=== PATIENT | male | born 1930 | race Caucasian/White ===

== ENCOUNTER → 2017-01-31 | Outpatient (REF) | payer MEDICARE, OTHER ==
[2017-02-04 00:06] LABS: BABESIOSIS LEVEL IGG <1:10 (Neg:<1:10); BABESIOSIS LEVEL IGM <1:10 (Neg:<1:10); Lyme Disease IgG/IgM Antibodie <0.91 ISR (0.00-0.90); Lyme Disease IgM Ab Quantitati <0.80 index (0.00-0.79)
== END ==
LOC: M LAB REF 16:37
PROVIDERS: ATTEND Physician Assistant
DX: S50.11XA Contusion of right forearm, initial encounter (principal); X58.XXXA Exposure to other specified factors, initial encounter; Y92.89 Other specified places as the place of occurrence of the external cause

== ENCOUNTER → 2017-03-04 | Outpatient (CLI) | payer MEDICARE, OTHER ==
[~2017-03-04] MED LIST: ADVI200T26 PO; GASTROGRAFIN SOLUTION 30ML (Q9963) As Ordered ONE; ISOVUE-370 76% 100ML VIAL (Q9967) As Ordered ONE; LISI10TA4 PO; PRAV10TA PO
--- NOTE | 2017-03-04 14:53 | REP ---
Clinical: Generalized abdominal pain. Technique: Axial contrast enhanced images from the lung bases to the pubic symphysis using oral and 100 ml Isovue 370 intravenous contrast material with precontrast images of the abdomen as well as coronal and sagittal re-formations. Comparison: 09/10/2005. Findings: Lung bases are clear. Visualized heart and pericardium normal. Liver, pancreas, gallbladder, bilateral adrenal glands and kidneys are normal. Splenic calcifications are consistent with prior granulomatous disease. The kidneys demonstrate mild symmetric chronic perinephric stranding. The enteric system demonstrates fecal stasis and diverticulosis without acute obstruction or inflammatory process. Normal terminal ileum and appendix identified in the right lower quadrant. Pelvis demonstrates normal bladder with mildly enlarged prostate gland measuring 5 cm transverse diameter. No ascites. No adenopathy. No free air. 3 cm fat containing periumbilical hernia noted. The atherosclerotic changes of the aorta and vasculature without aneurysm. Musculoskeletal structures demonstrate age-related degenerative change without focal osseous abnormality. Impression: 1. No acute intra-abdominal or pelvic pathology appreciated. 2. Diverticulosis without acute diverticulitis. 3. 3 cm fat containing periumbilical hernia. 4. Moderately enlarged prostate gland. Signed by Daniel Fuentes MD 03/04/2017 02:43 P
== END ==
LOC: M RAD 12:09
PROVIDERS: ATTEND Surgery
DX: K57.30 Diverticulosis of large intestine without perforation or abscess without bleeding (principal); N40.0 Benign prostatic hyperplasia without lower urinary tract symptoms; K42.9 Umbilical hernia without obstruction or gangrene
CPT/HCPCS: 74178; Q9963; Q9967

== ENCOUNTER → 2017-03-10 | Outpatient (CLI) | payer MEDICARE, OTHER ==
[~2017-03-10] VITALS: Ht 180.3 cm; Wt 93.0 kg
[~2017-03-10] MED LIST changes: -GASTROGRAFIN SOLUTION 30ML (Q9963) As Ordered ONE; -ISOVUE-370 76% 100ML VIAL (Q9967) As Ordered ONE; +LIDOCAINE 2% INJ 100 MG/5 ML SDV (FOR ANES.) As Ordered ONE; +NS 1,000 ML IV ONE; +PROPOFOL 200 MG/20 ML VIAL As Ordered ONE; +ePHEDrine SULFATE 25 MG/5 ML(5MG/ML) SYRINGE As Ordered ONE
--- NOTE | 2017-03-10 09:21 | ROOR ---
Patient Name: Dhruv Qiu Procedure Date: 03/10/2017 9:01 AM Date of : 1930 Age: 86 Room: [facility] Gender: Male Note Status: Finalized Procedure: Colonoscopy Indications: Constipation Providers: Lane Beckham Jr, MD Referring MD: Frederick Hurtado MD Requesting Provider: Medicines: Propofol per Anesthesia Complications: No immediate complications. Procedure: Pre-Anesthesia Assessment: - Prior to the procedure, a History and Physical was performed, and patient medications and allergies were reviewed. The patient is competent. The risks and benefits of the procedure and the sedation options and risks were discussed with the patient. All questions were answered and informed consent was obtained. Patient identification and proposed procedure were verified by the physician and the nurse in the pre-procedure area and in the procedure room. Mental Status Examination: alert and oriented. Airway Examination: normal oropharyngeal airway and neck mobility. Respiratory Examination: clear to auscultation. CV Examination: normal. ASA Grade Assessment: II - A patient with mild systemic disease. After reviewing the risks and benefits, the patient was deemed in satisfactory condition to undergo the procedure. The anesthesia plan was to use moderate sedation / analgesia (conscious sedation). Immediately prior to administration of medications, the patient was re-assessed for adequacy to receive sedatives. The heart rate, respiratory rate, oxygen saturations, blood pressure, adequacy of pulmonary ventilation, and response to care were monitored throughout the procedure. The physical status of the patient was re-assessed after the procedure. The Colonoscope was introduced through the anus and advanced to the cecum, identified by appendiceal orifice and ileocecal valve. The colonoscopy was performed without difficulty. The patient tolerated the procedure well. The quality of the bowel preparation was adequate and good. Findings: The recto-sigmoid colon, descending colon, transverse colon, ascending colon, cecum, appendiceal orifice and ileocecal valve appeared normal. Multiple small and large-mouthed diverticula were found in the sigmoid colon. External and internal hemorrhoids were found during retroflexion and during endoscopy. The hemorrhoids were moderate. Impression: - The recto-sigmoid colon, descending colon, transverse colon, ascending colon, cecum, appendiceal orifice and ileocecal valve are normal. - Diverticulosis in the sigmoid colon. - External and internal hemorrhoids. - No specimens collected. Recommendation: - Repeat colonoscopy in 5-[address] Beckham MD Lnae Beckham Jr, MD 03/10/2017 9:20:53 AM This report has been signed electronically. Number of Addenda: 0 Note Initiated On: 03/10/2017 9:01 AM Estimated Blood Loss: Estimated blood loss: none.
[2017-03-10 09:45] VITALS: BP 120/78
== END | disposition home or self-care (01) ==
LOC: M OPP 08:11
PROVIDERS: ATTEND Surgery
DX: K59.00 Constipation, unspecified (principal); Z86.010 Personal history of colon polyps; K57.30 Diverticulosis of large intestine without perforation or abscess without bleeding; K64.4 Residual hemorrhoidal skin tags; K64.8 Other hemorrhoids; I10 Essential (primary) hypertension; E11.9 Type 2 diabetes mellitus without complications; K21.9 Gastro-esophageal reflux disease without esophagitis; Z79.899 Other long term (current) drug therapy

== ENCOUNTER 2017-06-07 17:44 | Emergency (ER) | payer MEDICARE, OTHER ==
[~2017-06-07] VITALS: Ht 182.9 cm; Wt 90.9 kg
[~2017-06-07 17:44] MED LIST changes: -LIDOCAINE 2% INJ 100 MG/5 ML SDV (FOR ANES.) As Ordered ONE; -NS 1,000 ML IV ONE; -PRAV10TA PO; +PRAV10TA4 PO; -PROPOFOL 200 MG/20 ML VIAL As Ordered ONE; -ePHEDrine SULFATE 25 MG/5 ML(5MG/ML) SYRINGE As Ordered ONE
[2017-06-07] MEDS ORDERED: NS 1,000 ML IV ONE (19:15)
[2017-06-07] MEDS ORDERED: ONDANSETRON 4MG/2ML VIAL (J2405) IV ONE (19:15)
[2017-06-07] MEDS ORDERED: MORPHINE 2 MG/ML 1ML SYRINGE IV PRN (19:15)
[2017-06-07 20:01] LABS: ALBUMIN 4.1 GM/DL (3.2-5.2); ALBUMIN/GLOBULIN RATIO 0.89 (1.00-1.93); ALKALINE PHOSPHATASE 84 U/L (45-117); ALT/SGPT 14 U/L (12-78); ANION GAP 9 MEQ/L (8-16); AST/SGOT 9 U/L (15-37); BILIRUBIN,DIRECT 0.4 MG/DL (0.0-0.2); BILIRUBIN,TOTAL 1.7 MG/DL (0.2-1.0); BLOOD UREA NITROGEN 20 MG/DL (7-18); CALCIUM LEVEL 9.1 MG/DL (8.8-10.2); CARBON DIOXIDE LEVEL 27 MEQ/L (21-32); CHLORIDE LEVEL 98 MEQ/L (98-107); GLOMERULAR FILTRATION RATE > 60.0 (>35); GLUCOSE, FASTING 130 MG/DL (83-110); POTASSIUM SERUM 4.2 MEQ/L (3.5-5.1); SODIUM LEVEL 134 MEQ/L (136-145); TOTAL PROTEIN 8.7 GM/DL (6.4-8.2)
[2017-06-07 20:04] LABS: BASO % 0.4 % (0.0-1.0); EOS # 0.4 K/mm3 (0.0-0.50); EOS % 2.6 % (0.0-3.0); LARGE UNSTAINED CELL # 0.1 K/mm3 (0.0-0.4); LARGE UNSTAINED CELL % 0.7 % (0.0-4.0); LYMPH # 1.3 K/mm3 (1.5-4.5); LYMPH % 8.7 % (24.0-44.0); MEAN CORPUSCULAR HGB CONC 33.5 g/dl (32.0-36.5); MEAN CORPUSCULAR VOLUME 101.5 fl (80.0-96.0); MONO # 0.8 K/mm3 (0.0-0.8); NEUTROPHILS # 11.4 K/mm3 (1.8-7.7); NEUTROPHILS % 81.7 % (36.0-66.0); PLATELET COUNT, AUTOMATED 191 k/mm3 (150-450); RED CELL DISTRIBUTION WIDTH 12.9 % (11.5-14.5)
[2017-06-07] MEDS ORDERED: ISOVUE-370 76% 100ML VIAL (Q9967) As Ordered ONE (20:17)
--- NOTE | 2017-06-07 21:00 | REPUSA ---
CT of the abdomen and pelvis with contrast Clinical statement: Pain. Technique: Multiple axial CT images were obtained from the base of the lungs through the floor of the pelvis utilizing 5 mm axial slices after administration of nonionic intravenous contrast. Coronal an d sagittal reconstructions were also obtained. Comparison: 03/04/2017. Findings: Chest: The visualized lung bases are clear. Abdomen: The liver, spleen, pancreas, kidneys, gallbladder, and adrenal glands are unremarkable. The aorta is within normal limits. There is no evidence of abdominal lymphadenopathy or ascites. Pelvis: The bowel is unremarkable, with no obstructive or inflammatory changes. Diffuse sigmoid diver ticulosis is noted without evidence of diverticulitis. The appendix is normal. Moderate amount of sto ol fills the colon. The urinary bladder is within normal limits. The other pelvic structures appear g rossly intact. There is no evidence of pelvic lymphadenopathy or ascites. Bones: There are no suspicious osseous abnormalities seen. Multilevel degenerative disc disease is no leslie the lumbar spine, most severe at L4/L5 and L1/L2. 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 Impression: 1. Mild constipation. Sigmoid diverticulosis without evidence of diverticulitis. No obstructive or in flammatory bowel changes. 2. Moderate spondylosis of the lumbar spine.
[2017-06-07] MEDS ORDERED: MAALOX 30 ML SUSP *UDC PO ONE (21:30)
[2017-06-07] MEDS ORDERED: SIMETHICONE 80 MG CHEW TAB PO ONE (21:30)
[2017-06-07] MEDS ORDERED: ACETAMINOPHEN TAB 650MG DOSE (2X325MG) PO ONE (22:30)
[2017-06-07] MEDS ORDERED: SIME180C PO (23:12)
[2017-06-07] MEDS ORDERED: ZOFR4TAB3 PO (23:12)
[2017-06-07] MEDS ORDERED: MAGN1SOL2 PO (23:12)
[2017-06-07 23:45] VITALS: BP 119/70
== END 2017-06-07 23:45 | disposition home or self-care (01) ==
LOC: M ED 17:44
DX: E86.0 Dehydration (principal); K59.00 Constipation, unspecified
CPT/HCPCS: 74177; 80048; 80076; 81001; 83605; 83690; 85025; 86140; 96374; 96375; 99284; J2405; Q9967

== ENCOUNTER → 2017-06-13 | Outpatient (REF) | payer MEDICARE, OTHER ==
[~2017-06-13] MED LIST changes: +MAGN1SOL2 PO; +SIME180C PO; +ZOFR4TAB3 PO
[2017-06-13 20:11] LABS: MEAN CORPUSCULAR HEMOGLOBIN 33.1 pg (27.0-33.0); MEAN CORPUSCULAR HGB CONC 32.6 g/dl (32.0-36.5); MEAN CORPUSCULAR VOLUME 101.5 fl (80.0-96.0); PLATELET COUNT, AUTOMATED 289 k/mm3 (150-450); RED CELL DISTRIBUTION WIDTH 12.5 % (11.5-14.5); WHITE BLOOD COUNT 5.1 K/mm3 (4.0-10.0)
[2017-06-13 20:52] LABS: BASOPHILS 1 % (0-4); EOSINOPHILS 10 % (0-5)
== END ==
LOC: M LAB REF 16:36
PROVIDERS: ATTEND Family Medicine
DX: R71.8 Other abnormality of red blood cells (principal); D72.829 Elevated white blood cell count, unspecified; R79.82 Elevated C-reactive protein (CRP)

== ENCOUNTER → 2018-06-19 | Outpatient (CLI) | payer MEDICARE, OTHER | LOC: M WUC 09:52 | DX: M25.531 Pain in right wrist (principal) | CPT/HCPCS: 73110 ==

== ENCOUNTER 2019-05-29 15:02 | Emergency (ER) | payer MEDICARE, OTHER ==
[~2019-05-29] VITALS: Ht 180.3 cm; Wt 91.2 kg
[~2019-05-29 15:02] MED LIST changes: +ZOFR4TAB14 PO; -ZOFR4TAB3 PO
[2019-05-29] MEDS ORDERED: SYST1SOL4 OP (15:21)
[2019-05-29] MEDS ORDERED: ELIQ5TAB OR (15:21)
[2019-05-29] MEDS ORDERED: ALIG4CAP PO (15:21)
[2019-05-29] MEDS ORDERED: ADVI200T17 PO (15:21)
[2019-05-29] MEDS ORDERED: DILT30TA OR (15:21)
[2019-05-29] MEDS ORDERED: FLUTISP INH (15:21)
[2019-05-29] MEDS ORDERED: B-COTAB10 PO (15:21)
[2019-05-29 17:34] VITALS: BP 158/83
--- NOTE | 2019-05-29 19:18 | REP ---
REASON: Trauma. TECHNIQUE: 4.5 mm contiguous transaxial sections were obtained from the skull base to the cerebral convexities with thin cuts through the posterior fossa without the administration of intravenous contrast. FINDINGS: The ventricles and sulci are consistent with the patient's age. There are no extra-axial fluid collections. There is no mass effect. The deep cerebral white matter is consistent with the patient's age. The orbital and petrous structures, cerebellopontine angles, and posterior fossa are unremarkable. The sella turcica, cavernous, and paracavernous structures are essentially unremarkable. The visualized portions of the paranasal sinuses and mastoid air cells are clear. Images of the skull base show no gross abnormality. IMPRESSION: Essentially unremarkable CT examination of the brain. Age related changes are seen with cerebral and cerebellar atrophy. Electronically Signed by Maxwell Toscano DO 05/30/2019 09:33 A
--- NOTE | 2019-05-30 08:16 | REP ---
Pain after trauma. PRIORS: None. There is moderate to severe disc space narrowing at every level. Vertebral body height and alignment are within normal limits. Hypertrophic degenerative facet and uncovertebral joint changes are present at every level bilaterally. There is no acute fracture. There is no abnormal paraspinal soft tissue swelling. IMPRESSION: Chronic changes. Electronically Signed by Maxwell Toscano DO 05/30/2019 09:45 A
--- NOTE | 2019-05-30 08:35 | REP ---
REASON FOR EXAM: Pain after trauma. PRIORS: None. Four views were obtained with frontal view of the chest. The frontal view of the chest is normal. Four views of the left ribs showed no evidence of an acute fracture or destructive osseous lesion. Electronically Signed by Maxwell Toscano DO 05/30/2019 09:46 A
== END 2019-05-29 17:36 | disposition home or self-care (01) ==
LOC: M ED 15:02
DX: S20.212A Contusion of left front wall of thorax, initial encounter (principal); S51.002A Unspecified open wound of left elbow, initial encounter; S80.212A Abrasion, left knee, initial encounter; W10.8XXA Fall (on) (from) other stairs and steps, initial encounter; Y92.018 Other place in single-family (private) house as the place of occurrence of the external cause; I10 Essential (primary) hypertension; I48.91 Unspecified atrial fibrillation; N40.0 Benign prostatic hyperplasia without lower urinary tract symptoms; F95.9 Tic disorder, unspecified; Z79.899 Other long term (current) drug therapy; Z79.01 Long term (current) use of anticoagulants

== ENCOUNTER → 2019-06-20 | Outpatient (REF) | payer MEDICARE, OTHER ==
[~2019-06-20] MED LIST changes: +ADVI200T17 PO; +ALIG4CAP PO; +B-COTAB10 PO; +DILT30TA OR; +ELIQ5TAB OR; +FLUTISP INH; +SYST1SOL4 OP
== END ==
LOC: M LAB REF 13:28
PROVIDERS: ATTEND Family Medicine
DX: I48.91 Unspecified atrial fibrillation (principal)

== ENCOUNTER → 2020-05-28 | Outpatient (REF) | payer MEDICARE, OTHER ==
[~2020-05-28] MED LIST changes: +ACET-683 PO; +DIGO0.123 PO; -DILT30TA OR; +DILT30TA PO; -ELIQ5TAB OR; +ELIQ5TAB PO; +PRAV20TA2 PO; -SYST1SOL4 OP; +SYST1SOL4 OU
[2020-06-28 10:45] LABS: INR 1.15; PARTIAL THROMBOPLASTIN TIME 34.8 SECONDS (25.0-38.4)
== END ==
LOC: M LAB REF 07:10
PROVIDERS: ATTEND Family Medicine
DX: M43.6 Torticollis (principal); Z79.01 Long term (current) use of anticoagulants

== ENCOUNTER → 2020-06-11 | Outpatient (CLI) | payer MEDICARE, OTHER | LOC: M LABSMTC 11:57 | PROVIDERS: ATTEND Physical Medicine & Rehabilitation | DX: Z20.828 Contact with and (suspected) exposure to other viral communicable diseases (principal) | CPT/HCPCS: C9803; U0003 ==

== ENCOUNTER → 2020-06-13 | Outpatient (CLI) | payer MEDICARE, OTHER ==
[2020-06-13 15:53] LABS: PLATELET COUNT, AUTOMATED 185 10^3/uL (150-450)
[2020-06-13 17:06] LABS: PROTHROMBIN TIME 13.4 SECONDS (11.8-14.0)
[2020-06-13 17:07] LABS: PARTIAL THROMBOPLASTIN TIME 29.4 SECONDS (25.0-38.4)
== END ==
LOC: M LAB 13:56
PROVIDERS: ATTEND Physical Medicine & Rehabilitation
DX: Z01.812 Encounter for preprocedural laboratory examination (principal)

== ENCOUNTER 2020-06-16 14:43 | Inpatient (IN) | payer MEDICARE, OTHER ==
[~2020-06-16] VITALS: Ht 177.8 cm; Wt 93.7 kg
[~2020-06-16 14:43] MED LIST changes: -ACET-683 PO; -DIGO0.123 PO; -PRAV20TA2 PO
[2020-06-16] MEDS ORDERED: ISOVUE-370 76% 100ML VIAL As Ordered ONE (16:15)
[2020-06-16 16:18] LABS: BASO # 0.1 10^3/uL (0.0-0.2); BASO % 0.5 % (0.0-1.0); EOS % 0.2 % (0.0-3.0); HEMATOCRIT 33.1 % (42.0-52.0); HEMOGLOBIN 11.2 g/dl (13.5-17.5); LYMPH % 10.3 % (24.0-44.0); MEAN CORPUSCULAR HEMOGLOBIN 33.4 pg (27.0-33.0); MEAN CORPUSCULAR HGB CONC 33.8 g/dl (32.0-36.5); MEAN CORPUSCULAR VOLUME 98.8 fl (80.0-96.0); MONO # 0.6 10^3/uL (0.0-0.8); MONO % 6.7 % (0.0-5.0); NEUTROPHILS # 7.9 10^3/uL (1.5-8.5); NEUTROPHILS % 81.9 % (36.0-66.0); PLATELET COUNT, AUTOMATED 170 10^3/uL (150-450); RED BLOOD COUNT 3.35 10^6/uL (4.30-6.10); WHITE BLOOD COUNT 9.6 10^3/uL (4.0-10.0)
[2020-06-16 16:32] LABS: PROTHROMBIN TIME 13.4 SECONDS (11.8-14.0)
[2020-06-16 16:33] LABS: PARTIAL THROMBOPLASTIN TIME 26.8 SECONDS (25.0-38.4)
[2020-06-16 16:48] LABS: ALBUMIN 3.4 GM/DL (3.2-5.2); BILIRUBIN,DIRECT 0.2 MG/DL (0.0-0.2); BILIRUBIN,TOTAL 0.7 MG/DL (0.2-1.0); TOTAL PROTEIN 6.2 GM/DL (6.4-8.2)
--- NOTE | 2020-06-16 16:58 | REPVR ---
PROCEDURE INFORMATION: Exam: CT Abdomen And Pelvis With Contrast Exam date and time: 06/16/2020 3:34 PM Age: 89 years old Clinical indication: Other: Gi bleed TECHNIQUE: Imaging protocol: Computed tomography of the abdomen and pelvis with intravenous contrast. Radiation optimization: All CT scans at this facility use at least one of these dose optimization techniques: automated exposure control; mA and/or kV adjustment per patient size (includes targeted exams where dose is matched to clinical indication); or iterative reconstruction. Contrast material: ISOVUE 370; Contrast volume: 100 ml; Contrast route: INTRAVENOUS (IV); COMPARISON: CT ABD/PEL W/IV CONTRAST ONLY 06/07/2017 8:21 PM FINDINGS: Liver: The liver is moderately fatty but not enlarged. Gallbladder and bile ducts: Normal. No calcified stones. No ductal dilation. Pancreas: Pancreas demonstrates worsening atrophic changes. Spleen: Stable splenic granulomata are seen. Adrenals: Normal. No mass. Kidneys and ureters: Normal. No hydronephrosis. Stomach and bowel: Retained fecal material is seen in the colon heaviest in the ascending colon. Numerous colonic diverticular noted without evidence of acute diverticulitis. Appendix: The appendix is seen appears unremarkable. Intraperitoneal space: Unremarkable. No free air. No significant fluid collection. Vasculature: Ascending aorta is ectatic at 38 x 39 mm. This is stable. Lymph nodes: Unremarkable. No enlarged lymph nodes. Bladder: Unremarkable as visualized. Reproductive: Unremarkable as visualized. Bones/joints: Degenerative disc disease slightly progressed in the spine without evidence of an acute fracture. Soft tissues: There is a small fat containing left inguinal hernia. IMPRESSION: No acute abnormality. Stable ascending aortic ectasia with diverticulosis and retained feces. Electronically signed by: Antoni Jaramillo On 06/16/2020 16:58:08 PM
[2020-06-16] MEDS ORDERED: NS 500 ML IV ONE (18:15)
--- NOTE | 2020-06-16 19:27 | HPEPDOC ---
[facility] Medical History & Physical Date of Admission Jun 16, 2020 Date of Service: Jun 16, 2020 Attending Physician: ROSAS LAW MD History and Physical TIME OF SERVICE: 843pm CHIEF COMPLAINT: bleeding HISTORY OF PRESENT ILLNESS: This 89 yr old M presented w c/o hemorrhaging blood from the rectum since ; the blood is mostly dark and tarry in color and he has about 6 episodes per day. Today he did not make it to the bathroom on time therefore his insisted he see his PCP who sent him to the ER. He denies having CP, vomiting, dizziness, and dyspnea, palpitations, being told he looks pale or falling. He feels like his abdomen is bloated and has less of an appetite over the last few days. He is on Eliquis but stopped the med 3 days ago in preparation for a back procedure. His last c-scope done by 2-3 yrs ago revealed hemorrhoids. REVIEW OF SYSTEMS: 12 point review of systems negative except as listed in HPI PAST MEDICAL/ SURGICAL HISTORY: A fib HTN BPH Pre-DM Surgical repair of right elbow fx SOCIAL HISTORY: Former smoker/ drinks 1 beer with lunch and 1 bourbon with dinner FAMILY HISTORY: Brother had Brights disease ALLERGIES: Please see below. HOME MEDICATIONS: Please see below. PHYSICAL EXAMINATION: Vital Signs Date Time Temp Pulse Resp B/P (MAP) Pulse Ox O2 Delivery O2 Flow Rate FiO2 06/16/20 14:44 95.4 116 17 113/71 (85) 97 Room Air GENERAL APPEARANCE: obese/ well developed /NAD HEENT: no scleral icterus / EOMI CARDIOVASCULAR: RRR/NMRG / trace BLE edema LUNGS: CTAB on RA ABDOMEN: distended/ tympanic on percussion/ not tender w palpitation MUSCULOSKELETAL: VEENA x 4 INTEGUMENT: no generalized palor NEUROLOGICAL: CN -12 intact / speech not dysarthric PSYCHIATRIC: A&Ox 3 /able to understand and follow all commands LABORATORY DATA: 06/16/20 15:55 Na 134, K 4.2, BUN 20, CR 1.0 IMAGING: CT abd/pelvis IMPRESSION: No acute abnormality. Stable ascending aortic ectasia with diverticulosis and retained feces. MICROBIOLOGY: 06/16/20 Gastrointestinal Tract Panel (PCR), Received Pending ASSESSMENT: is an 89 yr old w a hx of Afib on eliquis who presented w c/o of melena for 5 days and will be admitted for evaluation of acute blood loss anemia 2/2 GIB. PLAN: 1 Acute anemia 2/2 GI bleed Orthostats were positive in ER Plan: admit to PCU / IV PPI / NPO, IVF / f/u type and screen, iron panel B12, folate serial Hg and stool H pylori / f/u w Dr Cherry forr EGD +/-c-scope 2 Suspected Alcohol Abuse Plan: telemetry, Ativan per CIWA or SAS protocol / seizure precautions / fall precautions / Thiamine Folic / IVF / Zofran PRN for n/v 3 A fib Plan: hold Eliquis / continue diltiazem and digoxin 4. HTN Plan: diltiazem DVT px w SCDs Dispo: home after more than 2 midnights stay Home Medications Scheduled Apixaban (Eliquis) 5 Mg Tablet, 5 MG PO BID Bifidobacterium Infantis (Align) 4 Mg Capsule, 4 MG PO DAILY Digoxin (Digoxin) 125 Mcg Tablet, 125 MCG PO DAILY Diltiazem HCl (Diltiazem HCl) 30 Mg Tablet, 30 MG PO BID Pravastatin Sodium (Pravastatin Sodium) 20 Mg Tablet, 20 MG PO DAILY Vitamin B Complex/Folic Acid (B-Complex Tablet) 0.4 Mg Tablet, 1 TAB PO DAILY Scheduled PRN Acetaminophen (Acetaminophen) 500 Mg Tablet, 500 MG PO Q6H PRN for PAIN / FEVER Propylene Glycol/Peg 400/Pf (Systane 0.3-0.4% Eye Drop) 1 Each Droperette, 1 DROP OU QID PRN for DRY EYES Allergies Coded Allergies: No Known Drug Allergies (Verified Allergy, Unknown, 06/16/20) A-FIB/CHADSVASC A-FIB History Current/History of A-Fib/PAF?: Yes Current PO Anticoag Therapy: No Treatment Reason Anticoagulant not given: Current bleeding ROSAS LAW MD Jun 16, 2020 19:27
[2020-06-16] MEDS: NS 1,000 ML IV SCH (19:35)
[2020-06-16] MEDS ORDERED: ACET-683 PO (19:42)
[2020-06-16] MEDS ORDERED: DIGO0.123 PO (19:42)
[2020-06-16] MEDS ORDERED: PRAV20TA2 PO (19:44)
[2020-06-16 20:53] LABS: PERCENT SATURATION 67.9 % (19.7-50.0)
[2020-06-16] MEDS: PANTOPRAZOLE 40MG VIAL (C9113 PER 1) IV SCH (20:59)
[2020-06-16 21:21] LABS: HEMATOCRIT 29.7 % (42.0-52.0)
[2020-06-16 21:25] VITALS: BP 147/89
[2020-06-17] VITALS (15 sets, daily range): BP systolic 120–141; BP diastolic 60–83
[2020-06-17] MEDS ORDERED: ONDANSETRON 4MG/2ML VIAL IV PRN (02:30)
[2020-06-17] MEDS ORDERED: LORazepam 2 MG/ML VIAL IV PRN (02:30)
[2020-06-17] MEDS: NS 1,000 ML IV SCH ×2 (06:10→18:18)
[2020-06-17 07:08] LABS: HEMATOCRIT 31.1 % (42.0-52.0); HEMOGLOBIN 10.6 g/dl (13.5-17.5); MEAN CORPUSCULAR HEMOGLOBIN 32.8 pg (27.0-33.0); MEAN CORPUSCULAR HGB CONC 34.1 g/dl (32.0-36.5); MEAN CORPUSCULAR VOLUME 96.3 fl (80.0-96.0); PLATELET COUNT, AUTOMATED 146 10^3/uL (150-450); RED BLOOD COUNT 3.23 10^6/uL (4.30-6.10); WHITE BLOOD COUNT 9.3 10^3/uL (4.0-10.0)
[2020-06-17 07:20] LABS: BLOOD UREA NITROGEN 39 MG/DL (7-18); CALCIUM LEVEL 7.4 MG/DL (8.8-10.2); CARBON DIOXIDE LEVEL 23 MEQ/L (21-32); CHLORIDE LEVEL 109 MEQ/L (98-107); CREATININE FOR GFR 0.95 MG/DL (0.70-1.30); GLOMERULAR FILTRATION RATE > 60.0 (>35); GLUCOSE, FASTING 209 MG/DL (70-100); INR 1.11; MAGNESIUM LEVEL 2.1 MG/DL (1.8-2.4); PROTHROMBIN TIME 14.5 SECONDS (11.8-14.0); SODIUM LEVEL 140 MEQ/L (136-145)
[2020-06-17] MEDS ORDERED: THIAMINE 200MG/2ML VIAL (J3411 PER 100MG) IM SCH (09:00)
[2020-06-17] MEDS: PANTOPRAZOLE 40MG VIAL (C9113 PER 1) IV SCH ×2 (09:25→20:46)
[2020-06-17] MEDS: DIGOXIN 0.125 MG TAB PO SCH (09:25)
[2020-06-17] MEDS: FOLIC ACID 1 MG TAB PO SCH (09:25)
--- NOTE | 2020-06-17 13:24 | IPNPDOC ---
Text Note Date of Service The patient was seen on 06/17/20. NOTE Patient seen and examined 89 M on Eliquis for AFib (last intake Tuesday) with 5 days of passage of bloody stools s/p 2 u prbc transfusion, still reports small amounts of bloody bowel movements HD stable Abdomen: minimally distended, round, soft, nontender on palpation ALEKSANDAR: small amount of blood in rectal vault on finger Impression: Lower GI bleed possibly diverticular bleeding exacerbated by Eliquis will schedule for endoscopy and colonoscopy in am, bowel prep tonight VS,Taishae, I+O VS, Fishbone, I+O Laboratory Tests 06/16/20 15:55 06/16/20 20:16 06/17/20 06:42 06/17/20 11:01 Vital Signs Date Time Temp Pulse Resp B/P (MAP) Pulse Ox O2 Delivery O2 Flow Rate FiO2 06/17/20 12:00 98.1 106 18 136/72 (93) 97 Room Air I&O- Last 24 Hours up to 6 AM 06/17/20 06:00 Intake Total 1872 ml Output Total 750 ml Balance 1122 ml YOU BEGUM MD Jun 17, 2020 13:24
--- NOTE | 2020-06-17 14:15 | IPNPDOC ---
Text Note Date of Service The patient was seen on 06/17/20. NOTE SUBJECTIVE: -No abdominal pain -Persistent melena, 5 episodes of dark, sometimes with small clots, sometimes fresh blood in bowl. This AM had 2 episodes. No abdominal pain GENERAL APPEARANCE: obese, NAD HEENT: NCAT, Anicteric, MMM CARDIOVASCULAR: RRR, no mrg LUNGS: CTAB ABDOMEN: Obese with mild distention, tympanic, non tender, normoactive sounds NEUROLOGICAL: Aox3, CN -12 intact, speech not dysarthric, moving all extremities with FROM and no asymmetrical weakness PSYCHIATRIC: A&Ox 3, able to understand and follow all commands LABORATORY DATA: WNC 9.3 Hgb 10.6 Fe 152 ferritin 324 TIBC 224 % saturation 68% H. Pylori antigen - pending Cr 0.95 IMAGING: CT abd/pelvis IMPRESSION: No acute abnormality. Stable ascending aortic ectasia with diverticulosis and retained feces. MICROBIOLOGY: 06/16/20 Gastrointestinal Tract Panel (PCR) - negative ASSESSMENT: 89 yr old w chronic Afib on eliquis who presented w/ melena for 5 days despite 3 days of holding eliquis, a history of hemorrhoids and last colonoscopy done 2- 3y ago, now admitted for evaluation of acute blood loss anemia 2/2 LGIB. PLAN: 1 Acute anemia 2/2 LGIB -Orthostats were positive in ER and given IVF -continue BID IV PPI -NPO with bowel prep tonight for EGD/colo tomorrow AM -continue IVF -No evidence of iron deficiency, B12, folate still pending -pending H pylori 2 Suspected Alcohol use disorder? -telemetry -Ativan per CIWA or SAS protocol -seizure precautions -fall precautions -Thiamine Folic / IVF / Zofran PRN for n/v 3 A fib -continue holding Eliquis -continue diltiazem and digoxin 4. HTN -continue diltiazem DVT px w SCDs Dispo: home after more than 2 midnights stay VS,Danybone, I+O VS, Fishbone, I+O Laboratory Tests 06/16/20 15:55 06/16/20 20:16 06/17/20 06:42 Vital Signs Date Time Temp Pulse Resp B/P (MAP) Pulse Ox O2 Delivery O2 Flow Rate FiO2 06/17/20 08:00 98.1 74 18 130/74 (92) 97 Room Air I&O- Last 24 Hours up to 6 AM 06/17/20 06:00 Intake Total 1872 ml Output Total 750 ml Balance 1122 ml JAZMÍN NICHOLS MD Jun 17, 2020 08:45
[2020-06-17] MEDS ORDERED: GOLYTELY SOLN 4000 ML BTL PO ONE (18:00)
[2020-06-18] VITALS (13 sets, daily range): BP systolic 102–143; BP diastolic 56–75
[2020-06-18] MEDS: NS 1,000 ML IV SCH ×3 (04:12→22:18)
[2020-06-18] MEDS ORDERED: MAGNESIUM CITRATE 300 ML BTL PO ONE (05:00)
[2020-06-18 08:55] LABS: HEMATOCRIT 21.2 % (42.0-52.0); HEMOGLOBIN 7.2 g/dl (13.5-17.5); MEAN CORPUSCULAR VOLUME 97.2 fl (80.0-96.0); PLATELET COUNT, AUTOMATED 136 10^3/uL (150-450); RED BLOOD COUNT 2.18 10^6/uL (4.30-6.10); WHITE BLOOD COUNT 7.8 10^3/uL (4.0-10.0)
[2020-06-18 09:23] LABS: BLOOD UREA NITROGEN 28 MG/DL (7-18); CALCIUM LEVEL 6.9 MG/DL (8.8-10.2); CARBON DIOXIDE LEVEL 26 MEQ/L (21-32); CHLORIDE LEVEL 108 MEQ/L (98-107); CREATININE FOR GFR 0.82 MG/DL (0.70-1.30); GLOMERULAR FILTRATION RATE > 60.0 (>35); GLUCOSE, FASTING 181 MG/DL (70-100); POTASSIUM SERUM 3.1 MEQ/L (3.5-5.1); SODIUM LEVEL 140 MEQ/L (136-145)
[2020-06-18] MEDS: FOLIC ACID 1 MG TAB PO SCH (10:09)
[2020-06-18] MEDS: PANTOPRAZOLE 40MG VIAL (C9113 PER 1) IV SCH ×2 (10:10→22:16)
[2020-06-18] MEDS: DIGOXIN 0.125 MG TAB PO SCH (10:10)
[2020-06-18] MEDS: THIAMINE 200MG/2ML VIAL (J3411 PER 100MG) IV SCH (10:11)
[2020-06-18] MEDS ORDERED: POTASSIUM CHLORIDE 10 MEQ SR TABLET PO ONE ×2 (11:00→13:00)
--- NOTE | 2020-06-18 11:03 | IPNPDOC ---
Text Note Date of Service The patient was seen on 06/18/20. NOTE SUBJECTIVE: -No abdominal pain -Some melena -Had bowel prep overnight for Colonoscopy today with Dr. Cherry GENERAL APPEARANCE: obese, NAD HEENT: NCAT, Anicteric, MMM CARDIOVASCULAR: RRR, no mrg LUNGS: CTAB ABDOMEN: Obese with mild distention, tympanic, non tender, normoactive sounds NEUROLOGICAL: Aox3, CN -12 intact, speech not dysarthric, moving all extremities with FROM and no asymmetrical weakness PSYCHIATRIC: A&Ox 3, able to understand and follow all commands LABORATORY DATA: pending AM labs IMAGING: CT abd/pelvis IMPRESSION: No acute abnormality. Stable ascending aortic ectasia with diverticulosis and retained feces. MICROBIOLOGY: 06/16/20 Gastrointestinal Tract Panel (PCR) - negative ASSESSMENT: 89 yr old w chronic Afib on eliquis who presented w/ melena for 5 days despite 3 days of holding eliquis, a history of hemorrhoids and last colonoscopy done 2- 3y ago, now admitted for evaluation of acute blood loss anemia 2/2 LGIB. PLAN: 1 Acute anemia 2/2 LGIB -Orthostats were positive in ER and given IVF -continue BID IV PPI -NPO, s/p bowel prep for colo this AM -continue IVF -No evidence of iron deficiency, B12, folate still pending -pending H pylori 2 Suspected Alcohol use disorder? -telemetry -Ativan per CIWA or SAS protocol -seizure precautions -fall precautions -Thiamine Folic / IVF / Zofran PRN for n/v 3 A fib -continue holding Eliquis -continue diltiazem and digoxin 4. HTN -continue diltiazem DVT px w SCDs Dispo: home after more than 2 midnights stay VS,Fishbone, I+O VS, Fishbone, I+O Laboratory Tests 06/17/20 11:01 06/17/20 14:48 06/17/20 20:54 Vital Signs Date Time Temp Pulse Resp B/P (MAP) Pulse Ox O2 Delivery O2 Flow Rate FiO2 06/18/20 04:00 98.3 78 20 135/75 (95) 96 Room Air I&O- Last 24 Hours up to 6 AM 06/18/20 05:59 Intake Total 3400 ml Output Total 450 ml Balance 2950 ml JAZMÍN NICHOLS V. MD Jun 18, 2020 08:56
--- NOTE | 2020-06-18 13:02 | IPNPDOC ---
Text Note Date of Service The patient was seen on 06/18/20. NOTE Patient seen and examined today. He tolerated bowel prep overnight and reports the last few bms he has had is brown colored and not bloody. He did have several bloody bms yesterday and his hgb/hct dropped to 7.2/21.2 and is awaiting transfusion of prbc HD stable patient sitting up on chair comfortable awake, alert, oriented abdomen, soft nondistended, and nontender IMpression: GI bleeding most likely lower GI bleeding, probably diverticular bleeding would proceed with Upper endoscopy and colonoscopy today. consent obtained. VS,Twin, I+O VS, Twin, I+O Laboratory Tests 06/17/20 14:48 06/17/20 20:54 06/18/20 08:36 Vital Signs Date Time Temp Pulse Resp B/P (MAP) Pulse Ox O2 Delivery O2 Flow Rate FiO2 06/18/20 12:55 97.6 74 18 121/56 97 Room Air I&O- Last 24 Hours up to 6 AM 06/18/20 06:00 Intake Total 3400 ml Output Total 200 ml Balance 3200 ml YOU BEGUM MD Jun 18, 2020 13:02
[2020-06-18] MEDS ORDERED: propofoL 200 MG/20 ML VIAL As Ordered ONE (15:48)
[2020-06-18] MEDS ORDERED: fentaNYL 100 MCG/2 ML INJECTION (J3010) As Ordered ONE (15:48)
[2020-06-18] MEDS ORDERED: LIDOCAINE 2% 100MG/5ML SDV (FOR ANES.) As Ordered ONE (15:48)
[2020-06-18] MEDS ORDERED: ePHEDrine SULFATE 25 MG/5 ML(5MG/ML) SYRINGE As Ordered ONE ×2 (15:54→16:13)
[2020-06-18] MEDS ORDERED: PHENYLephrine HCL 500 MCG/5 ML (100MCG/ML) SYRINGE (J2370) As Ordered ONE (16:13)
[2020-06-18] MEDS ORDERED: ONDANSETRON 4MG/2ML VIAL IV PRN (17:30)
[2020-06-18] MEDS ORDERED: LR 1,000 ML IV SCH (17:30)
[2020-06-18 18:32] LABS: HEMATOCRIT 26.6 % (42.0-52.0); MEAN CORPUSCULAR HEMOGLOBIN 32.3 pg (27.0-33.0); MEAN CORPUSCULAR HGB CONC 33.8 g/dl (32.0-36.5); MEAN CORPUSCULAR VOLUME 95.3 fl (80.0-96.0); PLATELET COUNT, AUTOMATED 129 10^3/uL (150-450); RED BLOOD COUNT 2.79 10^6/uL (4.30-6.10); WHITE BLOOD COUNT 7.2 10^3/uL (4.0-10.0)
[2020-06-19] VITALS (7 sets, daily range): BP systolic 103–142; BP diastolic 51–71
[2020-06-19] MEDS: FOLIC ACID 1 MG TAB PO SCH (09:00)
[2020-06-19] MEDS: THIAMINE 200MG/2ML VIAL (J3411 PER 100MG) IV SCH (09:00)
[2020-06-19] MEDS ORDERED: FLUBLOK(EGG FREE)(QUAD)INFLUENZA VACC 0.5ML SYRINGE 18YRS & OLDER IM ONE (09:00)
[2020-06-19] MEDS ORDERED: SLF 3 ML SYR IV PRN (09:15)
[2020-06-19] MEDS: SLF 3 ML SYR IV SCH ×3 (10:00→21:40)
[2020-06-19] MEDS: PANTOPRAZOLE 40MG VIAL (C9113 PER 1) IV SCH ×2 (10:27→21:39)
[2020-06-19] MEDS: DIGOXIN 0.125 MG TAB PO SCH (10:54)
[2020-06-19] MEDS: NS 1,000 ML IV SCH ×2 (10:56→21:39)
[2020-06-19 10:57] LABS: HEMATOCRIT 29.1 % (42.0-52.0); HEMOGLOBIN 9.9 g/dl (13.5-17.5); MEAN CORPUSCULAR HEMOGLOBIN 32.6 pg (27.0-33.0); MEAN CORPUSCULAR VOLUME 95.7 fl (80.0-96.0); PLATELET COUNT, AUTOMATED 147 10^3/uL (150-450); RED BLOOD COUNT 3.04 10^6/uL (4.30-6.10); WHITE BLOOD COUNT 9.2 10^3/uL (4.0-10.0)
--- NOTE | 2020-06-19 11:14 | IPNPDOC ---
Text Note Date of Service The patient was seen on 06/19/20. NOTE SUBJECTIVE: -had EGD/colo yesterday -Bloody BMs had stopped yesterday but this morning had 4 episodes of hematochezia despite a grossly normal EGD/colo yesterday GENERAL APPEARANCE: obese, NAD HEENT: NCAT, Anicteric, MMM CARDIOVASCULAR: RRR, no mrg LUNGS: CTAB ABDOMEN: Obese with mild distention, tympanic, non tender, normoactive sounds NEUROLOGICAL: Aox3, CN -12 intact, speech not dysarthric, moving all extremities with FROM and no asymmetrical weakness PSYCHIATRIC: A&Ox 3, able to understand and follow all commands LABORATORY DATA: pending AM labs IMAGING: CT abd/pelvis IMPRESSION: No acute abnormality. Stable ascending aortic ectasia with diverticulosis and retained feces. MICROBIOLOGY: 06/16/20 Gastrointestinal Tract Panel (PCR) - negative ASSESSMENT: 89 yr old w chronic Afib on eliquis who presented w/ melena for 5 days despite 3 days of holding eliquis, a history of hemorrhoids and last colonoscopy done 2- 3y ago, now admitted for evaluation of acute blood loss anemia 2/2 LGIB. PLAN: 1 Acute anemia 2/2 LGIB, likely diverticulosis -continue PPI daily (PO) -continue IVF now that bleeding has resumed -No evidence of iron deficiency, B12, folate still pending -pending H pylori -Normal EGD/colo yesterday (06/18) -will update surgery of continued episodes of bleeding -check AM CBC given the bleeding 3 A fib -continue holding Eliquis -continue diltiazem and digoxin 4. HTN -continue diltiazem DVT px w SCDs Dispo: home after more than 2 midnights stay VS,Fishbone, I+O VS, Fishbone, I+O Laboratory Tests 06/18/20 17:52 Vital Signs Date Time Temp Pulse Resp B/P (MAP) Pulse Ox O2 Delivery O2 Flow Rate FiO2 06/19/20 08:00 97.2 91 18 120/70 (87) 96 Room Air I&O- Last 24 Hours up to 6 AM 06/19/20 05:59 Intake Total 2766 ml Output Total 0 ml Balance 2766 ml JAZMÍN NICHOLS MD Jun 19, 2020 09:51
[2020-06-19 11:25] LABS: BLOOD UREA NITROGEN 17 MG/DL (7-18); CALCIUM LEVEL 7.4 MG/DL (8.8-10.2); CARBON DIOXIDE LEVEL 22 MEQ/L (21-32); CHLORIDE LEVEL 110 MEQ/L (98-107); CREATININE FOR GFR 0.71 MG/DL (0.70-1.30); GLOMERULAR FILTRATION RATE > 60.0 (>35); GLUCOSE, FASTING 182 MG/DL (70-100); POTASSIUM SERUM 3.6 MEQ/L (3.5-5.1); SODIUM LEVEL 139 MEQ/L (136-145)
[2020-06-19 16:13] LABS: HEMATOCRIT 28.9 % (42.0-52.0); HEMOGLOBIN 9.8 g/dl (13.5-17.5); MEAN CORPUSCULAR HEMOGLOBIN 32.8 pg (27.0-33.0); MEAN CORPUSCULAR HGB CONC 33.9 g/dl (32.0-36.5); MEAN CORPUSCULAR VOLUME 96.7 fl (80.0-96.0); PLATELET COUNT, AUTOMATED 159 10^3/uL (150-450); RED BLOOD COUNT 2.99 10^6/uL (4.30-6.10); WHITE BLOOD COUNT 8.9 10^3/uL (4.0-10.0)
[2020-06-20] VITALS (10 sets, daily range): BP systolic 112–146; BP diastolic 56–72
[2020-06-20] MEDS: SLF 3 ML SYR IV SCH ×3 (04:26→20:23)
[2020-06-20 04:48] LABS: HEMATOCRIT 24.2 % (42.0-52.0); HEMOGLOBIN 8.2 g/dl (13.5-17.5); MEAN CORPUSCULAR HEMOGLOBIN 32.7 pg (27.0-33.0); MEAN CORPUSCULAR HGB CONC 33.9 g/dl (32.0-36.5); MEAN CORPUSCULAR VOLUME 96.4 fl (80.0-96.0); PLATELET COUNT, AUTOMATED 138 10^3/uL (150-450); RED BLOOD COUNT 2.51 10^6/uL (4.30-6.10); WHITE BLOOD COUNT 6.4 10^3/uL (4.0-10.0)
[2020-06-20 05:09] LABS: BLOOD UREA NITROGEN 12 MG/DL (7-18); CARBON DIOXIDE LEVEL 25 MEQ/L (21-32); CHLORIDE LEVEL 113 MEQ/L (98-107); CREATININE FOR GFR 0.73 MG/DL (0.70-1.30); GLOMERULAR FILTRATION RATE > 60.0 (>35); GLUCOSE, FASTING 126 MG/DL (70-100); POTASSIUM SERUM 3.3 MEQ/L (3.5-5.1); SODIUM LEVEL 144 MEQ/L (136-145)
[2020-06-20] MEDS ORDERED: POTASSIUM CHLORIDE 10 MEQ SR TABLET PO ONE (06:30)
[2020-06-20] MEDS: NS 1,000 ML IV SCH (06:36)
[2020-06-20] MEDS: PANTOPRAZOLE 40MG VIAL (C9113 PER 1) IV SCH ×2 (08:26→20:23)
[2020-06-20] MEDS: DIGOXIN 0.125 MG TAB PO SCH (08:28)
--- NOTE | 2020-06-20 11:26 | IPNPDOC ---
Text Note Date of Service The patient was seen on 06/19/20. NOTE Patient had a negative egd/colonoscopy workup for bleeding yesterday. This mor isa he felt he needed to go. Initially had small amount of brown stool then had bright red blood bm and had 3 or 3 more. Last BM at 10 am. I ibis him at 4 pm and has not had any further bm. Repeat hgb and hct stable. On exam he is hd stable looks comfortable abdomen soft, nondistended, nontended ALEKSANDAR: empty rectal vault, no gross blood. No obvious fissue or inflamed hemorrhoids externally Impression lower gi bleed probably diverticular in origin, other differentials include hemorrhoidal bleed, small bowel bleed will get a bleeding scan arranged to rule out sb bleed hold [place] VS,Twin, I+O VS, Twin, I+O Laboratory Tests 06/19/20 15:54 06/20/20 04:12 Vital Signs Date Time Temp Pulse Resp B/P (MAP) Pulse Ox O2 Delivery O2 Flow Rate FiO2 06/20/20 08:28 88 124/68 06/20/20 08:00 98.7 16 93 Room Air I&O- Last 24 Hours up to 6 AM 06/20/20 05:59 Intake Total 1960 ml Balance 1960 ml YOU BEGUM MD Jun 20, 2020 11:26
--- NOTE | 2020-06-20 13:24 | IPNPDOC ---
Text Note Date of Service The patient was seen on 06/20/20. NOTE SUBJECTIVE: -had EGD/colo on 06/18 that was unremarkable -Still having episodic bloody BMs -Is due for a tagged nuclear scan today per Dr. Cherry GENERAL APPEARANCE: obese, NAD HEENT: NCAT, Anicteric, MMM CARDIOVASCULAR: RRR, no mrg LUNGS: CTAB ABDOMEN: Obese with mild distention, tympanic, non tender, normoactive sounds NEUROLOGICAL: Aox3, CN -12 intact, speech not dysarthric, moving all extremities with FROM and no asymmetrical weakness PSYCHIATRIC: A&Ox 3, able to understand and follow all commands LABORATORY DATA: na 144 k 3.3 cr 0.73 wbc 6.4 hgb 8.2 platelets 138 IMAGING: CT abd/pelvis IMPRESSION: No acute abnormality. Stable ascending aortic ectasia with diverticulosis and retained feces. MICROBIOLOGY: 06/16/20 Gastrointestinal Tract Panel (PCR) - negative ASSESSMENT: 89 yr old w chronic Afib on eliquis who presented w/ melena for 5 days despite 3 days of holding eliquis, a history of hemorrhoids and last colonoscopy done 2- 3y ago, now admitted for evaluation of acute blood loss anemia 2/2 LGIB c/b persistent episodic hematochezia despite unremarkable colonoscopy. PLAN: 1 Acute anemia 2/2 LGIB, likely diverticulosis -continue PPI daily (PO) -dc IVF -No evidence of iron deficiency, B12, folate still pending -pending H pylori -Normal EGD/colo (06/18) -now pending nuclear scan -transfuse 1u pRBC, check h/h after transfusion 3 A fib -continue holding Eliquis -continue diltiazem and digoxin 4. HTN -continue diltiazem DVT px w SCDs Dispo: home after more than 2 midnights stay VS,Fishbone, I+O VS, Fishbone, I+O Laboratory Tests 06/19/20 10:29 06/19/20 15:54 06/20/20 04:12 Vital Signs Date Time Temp Pulse Resp B/P (MAP) Pulse Ox O2 Delivery O2 Flow Rate FiO2 06/20/20 04:00 99.0 76 16 133/69 (90) 97 Room Air I&O- Last 24 Hours up to 6 AM 06/20/20 06:00 Intake Total 1360 ml Balance 1360 ml JAZMÍN NICHOLS MD Jun 20, 2020 08:29
[2020-06-20] MEDS ORDERED: FUROSEMIDE 40MG/4ML VIAL (J1940) IV ONE (13:30)
[2020-06-20 20:12] LABS: HEMATOCRIT 33.4 % (42.0-52.0); MEAN CORPUSCULAR HEMOGLOBIN 32.4 pg (27.0-33.0); MEAN CORPUSCULAR HGB CONC 34.1 g/dl (32.0-36.5); MEAN CORPUSCULAR VOLUME 94.9 fl (80.0-96.0); PLATELET COUNT, AUTOMATED 195 10^3/uL (150-450); RED BLOOD COUNT 3.52 10^6/uL (4.30-6.10); WHITE BLOOD COUNT 8.5 10^3/uL (4.0-10.0)
[2020-06-20 20:14] LABS: HEMOGLOBIN 11.4 g/dl (13.5-17.5)
[2020-06-21] VITALS: BP 137/76
[2020-06-21 04:00] VITALS: BP 94/51
[2020-06-21 04:23] LABS: HEMATOCRIT 29.5 % (42.0-52.0); MEAN CORPUSCULAR HEMOGLOBIN 31.9 pg (27.0-33.0); MEAN CORPUSCULAR HGB CONC 33.9 g/dl (32.0-36.5); MEAN CORPUSCULAR VOLUME 94.2 fl (80.0-96.0); PLATELET COUNT, AUTOMATED 167 10^3/uL (150-450); RED BLOOD COUNT 3.13 10^6/uL (4.30-6.10); WHITE BLOOD COUNT 6.7 10^3/uL (4.0-10.0)
[2020-06-21 04:38] LABS: BLOOD UREA NITROGEN 9 MG/DL (7-18); CALCIUM LEVEL 7.7 MG/DL (8.8-10.2); CARBON DIOXIDE LEVEL 30 MEQ/L (21-32); CHLORIDE LEVEL 108 MEQ/L (98-107); CREATININE FOR GFR 0.91 MG/DL (0.70-1.30); GLOMERULAR FILTRATION RATE > 60.0 (>35); GLUCOSE, FASTING 147 MG/DL (70-100); POTASSIUM SERUM 3.2 MEQ/L (3.5-5.1); SODIUM LEVEL 143 MEQ/L (136-145)
[2020-06-21] MEDS: SLF 3 ML SYR IV SCH (04:45)
[2020-06-21 08:00] VITALS: BP 148/81
[2020-06-21] MEDS: PANTOPRAZOLE 40MG VIAL (C9113 PER 1) IV SCH (09:09)
[2020-06-21] MEDS: DIGOXIN 0.125 MG TAB PO SCH (09:09)
[2020-06-21 09:10] VITALS: BP 105/85
--- NOTE | 2020-06-21 11:57 | DS.PDOC ---
Discharge Summary General Date of Admission Jun 16, 2020 at 19:21 Date of Discharge 06/21/2020 Attending Physician: JAZMÍN NICHOLS MD Specialist/Consultants Involve: YOU CHERRY MD Discharge Summary PROCEDURES PERFORMED DURING STAY: EGD/colonoscopy on 06/19/2020. Tagged nuclear scan on 06/20/2020 ADMITTING DIAGNOSES: 1. LGIB DISCHARGE DIAGNOSES: 1. LGIB likely 2/2 diverticulosis 2. chronic A fib 3. HTN 4. BPH 5. Pre-DM COMPLICATIONS/CHIEF COMPLAINT: Lower Gi Bleed. HISTORY OF PRESENT ILLNESS: 89 yr old M who presented w c/o hemorrhaging blood from the rectum for 24h with the blood being mostly dark and tarry in color and had about 6 episodes per day. He contacted his PCP who sent him to the ER. He otherwise denied having CP, vomiting, dizziness, and dyspnea, palpitations, being told he looks pale or falling. He reported feeling bloated and having a poor appetite over the last few days. He is on Eliquis for Afib but stopped the med 3 days ago in preparation for a back procedure. His last c-scope done by 2-3 yrs ago revealed hemorrhoids. HOSPITAL COURSE: In the hospital he was found to be anemic to Hgb 7.2. Surgery was consulted and he underwent Egd/colo with Dr. Cherry on 06/19 that was ultimately within normal limits with no obvious site of bleeding and Dr. Cherry thought it was likely diverticular vs. hemorrhoidal though he did not have evidence of recently bleeding hemorrhoid. He got 2u of blood and his course was c/b episodic bleeding for which he had a tagged nuclear scan on 06/20 that was also negative. He received 3rd unit of blood and is now being discharged home with close PCP follow up, continued holding of his eliquis for at least 1 more week until bleeding stops and surgery follow up. DISCHARGE MEDICATIONS: Please see below. ALLERGIES: Please see below. PHYSICAL EXAMINATION ON DISCHARGE: VITAL SIGNS: Please see below. GENERAL APPEARANCE: obese, NAD HEENT: NCAT, Anicteric, MMM CARDIOVASCULAR: RRR, no mrg LUNGS: CTAB ABDOMEN: Obese with mild distention, tympanic, non tender, normoactive sounds NEUROLOGICAL: Aox3, CN -12 intact, speech not dysarthric, moving all extremities with FROM and no asymmetrical weakness PSYCHIATRIC: A&Ox 3, able to understand and follow all commands LABORATORY DATA: Please see below. IMAGING: CT A/P: No acute abnormality. Stable ascending aortic ectasia with diverticulosis and retained feces. PROGNOSIS: Good ACTIVITY: As tolerated DIET: 2g sodium DISCHARGE PLAN: Home, continued holding of eliquis and close PCP follow up. DISPOSITION: Home DISCHARGE INSTRUCTIONS: 1. Home, continued holding of eliquis and close PCP follow up. ITEMS TO FOLLOWUP ON ON OUTPATIENT: 1. LGIB resolution 2. Chronic Afib, restarting of eliquis DISCHARGE CONDITION: Stable TIME SPENT ON DISCHARGE: 40 minutes. Vital Signs/I&Os Vital Signs Date Time Temp Pulse Resp B/P (MAP) Pulse Ox O2 Delivery O2 Flow Rate FiO2 06/21/20 09:10 122 105/85 06/21/20 08:00 98.2 18 98 Room Air I&O- Last 24 Hours up to 6 AM 06/21/20 05:59 Intake Total 1800 ml Output Total 5 ml Balance 1795 ml Laboratory Data Labs 24H Laboratory Tests 2 06/20/20 19:34: Nucleated Red Blood Cells % (auto) 0.2H 06/21/20 03:46: Nucleated Red Blood Cells % (auto) 0.0, Anion Gap 5L, Glomerular Filtration Rate > 60.0, Calcium Level 7.7L CBC/BMP Laboratory Tests 06/20/20 19:34 06/21/20 03:46 Microbiology Microbiology 06/17/20 Respiratory Virus Panel (PCR) ([facility]) - Final, Complete 06/16/20 Gastrointestinal Tract Panel (PCR) - Final, Complete Discharge Medications Scheduled Bifidobacterium Infantis (Align) 4 Mg Capsule, 4 MG PO DAILY, (Reported) Digoxin (Digoxin) 125 Mcg Tablet, 125 MCG PO DAILY, (Reported) Diltiazem HCl (Diltiazem HCl) 30 Mg Tablet, 30 MG PO BID, (Reported) Pravastatin Sodium (Pravastatin Sodium) 20 Mg Tablet, 20 MG PO DAILY, (Reported) Vitamin B Complex/Folic Acid (B-Complex Tablet) 0.4 Mg Tablet, 1 TAB PO DAILY, (Reported) Scheduled PRN Acetaminophen (Acetaminophen) 500 Mg Tablet, 500 MG PO Q6H PRN for PAIN / FEVER, (Reported) Propylene Glycol/Peg 400/Pf (Systane 0.3-0.4% Eye Drop) 1 Each Droperette, 1 DROP OU QID PRN for DRY EYES, (Reported) Allergies Coded Allergies: No Known Drug Allergies (Verified Allergy, Unknown, 06/16/20) JAZMÍN NICHOLS MD Jun 21, 2020 11:57
--- NOTE | 2020-06-22 16:12 | IPN ---
DATE: 06/21/2020 HISTORY: The patient is an 89-year-old man who had been admitted on the 16 of June with evidence for GI bleeding. He received a total of 4 units of packed red blood cells over the ensuing several days. He was seen in consultation by Dr. Cherry. A CT scan of the abdomen and pelvis was unrevealing. He underwent a nuclear medicine bleeding scan yesterday which showed no source of bleeding. The patient reports no bleeding since at least yesterday or the day before. He has not had a bowel movement during this time. PHYSICAL EXAMINATION: VITAL SIGNS: Vital signs show that he has been afebrile. His pulse is ranging between the 80s and as high as 122 this morning. Blood pressure is good. Intake and output shows that yesterday he had 2 liters in and several voids that were recorded but not measured. GENERAL APPEARANCE: A pleasant gentleman sitting on the side of his bed looking comfortable. ABDOMEN: Mildly protuberant but nontender. LABORATORY STUDIES: White count this morning of 7, hemoglobin 10, hematocrit 30 and a platelet count of 167,000. Chemistry profile shows a sodium of 143, potassium 3.2, chloride 108, CO2 of 30, BUN of 9, creatinine 0.9 and a glucose of 147. IMPRESSION: The patients history of bleeding is most typical of a diverticular bleed. He has not had any bleeding since the day before yesterday. He had a bleeding scan yesterday that was negative. RECOMMENDATIONS: At this point the patient clearly does not need any further evaluation from Surgery. The patient indicates that the plan is for him to be discharged today, and I will leave that decision to the Hospitalist. ERICK
--- NOTE | 2020-06-25 11:37 | ROOR ---
Patient Name: Dhruv Qiu Procedure Date: 06/18/2020 2:46 PM Date of : 1930 Age: 89 Room: [facility] Gender: Male Note Status: Finalized Procedure: Colonoscopy Indications: Hematochezia Providers: Doug Cherry MD Referring MD: 2. Inpatient 2. Inpatient Requesting Provider: Medicines: Monitored Anesthesia Care Complications: No immediate complications. Procedure: Pre-Anesthesia Assessment: - Prior to the procedure, a History and Physical was performed, and patient medications and allergies were reviewed. The patient is competent. The risks and benefits of the procedure and the sedation options and risks were discussed with the patient. All questions were answered and informed consent was obtained. Patient identification and proposed procedure were verified by the physician, the nurse and the welt beater in the procedure room. Mental Status Examination: alert and oriented. Airway Examination: normal oropharyngeal airway and neck mobility. Respiratory Examination: clear to auscultation. CV Examination: irregularly irregular rate and rhythm. Prophylactic Antibiotics: The patient does not require prophylactic antibiotics. Prior Anticoagulants: The patient has taken Eliquis (apixaban), last dose was 5 days prior to procedure. ASA Grade Assessment: III - A patient with severe systemic disease. After reviewing the risks and benefits, the patient was deemed in satisfactory condition to undergo the procedure. The anesthesia plan was to use monitored anesthesia care (MAC). Immediately prior to administration of medications, the patient was re-assessed for adequacy to receive sedatives. The heart rate, respiratory rate, oxygen saturations, blood pressure, adequacy of pulmonary ventilation, and response to care were monitored throughout the procedure. The physical status of the patient was re-assessed after the procedure. The Colonoscope was introduced through the anus and advanced to the terminal ileum, with identification of the appendiceal orifice and IC valve. The colonoscopy was performed without difficulty. The patient tolerated the procedure well. The quality of the bowel preparation was fair. Findings: Hemorrhoids were found on perianal exam. Multiple medium-mouthed diverticula were found in the sigmoid colon, descending colon and transverse colon. No stigmata of recent bleed that I could identify, no active bleeding, one portion at sigmoid with miimal bruising prob more from prep There is no endoscopic evidence of bleeding or mass in the entire colon. Brown liquid stool in the entire colon, no left over blood to about 10 cms of the terminal ileum The terminal ileum appeared normal. Internal hemorrhoids were found during retroflexion. The hemorrhoids were medium-sized. Impression: - Preparation of the colon was fair. - Hemorrhoids found on perianal exam. - Moderate diverticulosis in the sigmoid colon, in the descending colon and in the transverse colon. - The examined portion of the ileum was normal. - No specimens collected. Recommendation: - Admit the patient to hospital [facility] for ongoing care. - No evidence of further bleeding. I did not find where the exact bleeding has occured. Given multiple diverticula, probably diverticular bleeding Doug Cherry MD Doug Cherry MD 06/18/2020 4:48:27 PM Electronically signed by Doug Cherry MD Number of Addenda: 0 Note Initiated On: 06/18/2020 2:46 PM Estimated Blood Loss: Estimated blood loss: none.
--- NOTE | 2020-06-25 11:37 | ROOR ---
Patient Name: Dhruv Qiu Procedure Date: 06/18/2020 2:44 PM Date of : 1930 Age: 89 Room: [facility] Gender: Male Note Status: Finalized Procedure: Upper GI endoscopy Indications: Hematochezia, Melena Providers: Doug Cherry MD Referring MD: 2. Inpatient 2. Inpatient Requesting Provider: Medicines: Monitored Anesthesia Care Complications: No immediate complications. Estimated blood loss: None. Procedure: Pre-Anesthesia Assessment: - Prior to the procedure, a History and Physical was performed, and patient medications and allergies were reviewed. The patient is competent. The risks and benefits of the procedure and the sedation options and risks were discussed with the patient. All questions were answered and informed consent was obtained. Patient identification and proposed procedure were verified by the physician, the nurse and the insurance administrator in the procedure room. Mental Status Examination: alert and oriented. Airway Examination: normal oropharyngeal airway and neck mobility. Respiratory Examination: clear to auscultation. CV Examination: irregularly irregular rate and rhythm. Prophylactic Antibiotics: The patient does not require prophylactic antibiotics. Prior Anticoagulants: The patient has taken Eliquis (apixaban), last dose was 5 days prior to procedure. ASA Grade Assessment: III - A patient with severe systemic disease. After reviewing the risks and benefits, the patient was deemed in satisfactory condition to undergo the procedure. The anesthesia plan was to use monitored anesthesia care (MAC). Immediately prior to administration of medications, the patient was re-assessed for adequacy to receive sedatives. The heart rate, respiratory rate, oxygen saturations, blood pressure, adequacy of pulmonary ventilation, and response to care were monitored throughout the procedure. The physical status of the patient was re-assessed after the procedure. The Endoscope was introduced through the mouth, and advanced to the second part of duodenum. The upper GI endoscopy was accomplished without difficulty. The patient tolerated the procedure well. Findings: The examined esophagus was normal. A small hiatal hernia was present. The duodenal bulb, first portion of the duodenum and second portion of the duodenum were normal. There is no endoscopic evidence of bleeding, erythema, erythema or inflammatory changes suggestive of gastritis, mucosal abnormalities or ulceration in the entire examined stomach. Impression: - Normal esophagus. - Small hiatal hernia. - Normal duodenal bulb, first portion of the duodenum and second portion of the duodenum. - No specimens collected. Recommendation: - Admit the patient to hospital [facility] for ongoing care. Doug Cherry MD Doug Cherry MD 06/18/2020 4:42:27 PM Electronically signed by Doug Cherry MD Number of Addenda: 0 Note Initiated On: 06/18/2020 2:44 PM Estimated Blood Loss: Estimated blood loss: none.
--- NOTE | 2020-07-16 12:48 | REP ---
NUCLEAR GI BLEEDING SCAN HISTORY: Intermittent GI bleeding. Negative colonoscopy. Following the intravenous administration of 26.8 mCi Technetium-99m tagged red blood cells using the Ultratag kit, multiple images of the abdomen and pelvis were performed for a period of one hour. Normal blood pool structures are seen including the liver, spleen, and great vessels of the abdomen and pelvis. There is no abnormal bowel activity that would suggest the presence of active GI bleeding. IMPRESSION: No scintigraphic evidence of active gastrointestinal (GI) bleeding at this time. MTDD
== END 2020-06-21 14:25 | disposition home or self-care (01) | DRG 378 ==
LOC: M ED 14:43 → M ED INP 19:21 → ENRESERV 20:03 → M PCU 21:22
PROVIDERS: ADMIT Internal Medicine; ATTEND Internal Medicine
PROC: 30233N1 Transfusion of Nonautologous Red Blood Cells into Peripheral Vein, Percutaneous Approach (ICD-10-PCS; principal; 2020-06-17)
PROC: 0DJ08ZZ Inspection of Upper Intestinal Tract, Via Natural or Artificial Opening Endoscopic (ICD-10-PCS; 2020-06-18)
PROC: 0DJD8ZZ Inspection of Lower Intestinal Tract, Via Natural or Artificial Opening Endoscopic (ICD-10-PCS; 2020-06-18)
DX: K57.31 Diverticulosis of large intestine without perforation or abscess with bleeding (principal); D62 Acute posthemorrhagic anemia; I48.20 Chronic atrial fibrillation, unspecified; I10 Essential (primary) hypertension; N40.0 Benign prostatic hyperplasia without lower urinary tract symptoms; K64.8 Other hemorrhoids; K44.9 Diaphragmatic hernia without obstruction or gangrene; R73.03 Prediabetes; F10.10 Alcohol abuse, uncomplicated; Z79.899 Other long term (current) drug therapy; Z87.891 Personal history of nicotine dependence; Z79.01 Long term (current) use of anticoagulants

== ENCOUNTER → 2020-08-17 | Outpatient (CLI) | payer MEDICARE, OTHER ==
[~2020-08-17] MED LIST changes: +ACET-683 PO; +DIGO0.123 PO; +PRAV20TA2 PO
== END ==
LOC: M LABSMTC 08:02
PROVIDERS: ATTEND Physical Medicine & Rehabilitation
DX: Z20.828 Contact with and (suspected) exposure to other viral communicable diseases (principal)

== ENCOUNTER → 2021-07-06 | Outpatient (REF) | payer MEDICARE, OTHER ==
[~2021-07-06] MED LIST changes: +LISI10TA22 PO; -LISI10TA4 PO; -SIME180C PO; +SIME180C25 PO
[2021-07-06 17:11] LABS: PERCENT SATURATION 30.8 % (19.7-50.0)
[2021-07-06 17:19] LABS: FOLATE 21.5 NG/ML
== END ==
LOC: M LAB REF 16:16
PROVIDERS: ATTEND Family Medicine
DX: D64.9 Anemia, unspecified (principal)

== ENCOUNTER → 2021-07-22 | Outpatient (CLI) | payer MEDICARE, OTHER ==
--- NOTE | 2021-07-28 08:56 | REP ---
INDICATION: RT POST LUNG NODULE COMPARISON: 02/04/2021 TECHNIQUE: Axial noncontrast images from the thoracic inlet to the upper abdomen with coronal and sagittal reformations. This CT examination was performed using the following dose reduction techniques: Automated exposure control, adjustment of mA and/or kv according to the patient's size, and use of iterative reconstruction technique. FINDINGS: Moderate emphysematous changes with minimal scattered scarring unchanged. The small opacity along the medial right base likely represents a chronic focal pleural plaque and is unchanged. No acute consolidation, nodule or mass. No effusion. No pneumothorax. Mediastinum demonstrates stable mild chronic dilatation to the thoracic aorta measuring 4.4 cm maximal diameter at the root and smoothly tapering through the arch to the mid descending aorta measuring 3.2 cm diameter. Heart and pericardium are within normal limits and stable. No adenopathy. Musculoskeletal structures demonstrate age-related changes without focal osseous abnormality. Limited upper abdomen demonstrates normal bilateral adrenal glands. IMPRESSION: Chronic stable changes including moderate emphysematous disease. 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 <Electronically signed by Daniel Fuentes > 07/28/21 0830
== END ==
LOC: M PLAIMG 14:19
PROVIDERS: ATTEND Family Medicine
DX: J43.9 Emphysema, unspecified (principal); R91.8 Other nonspecific abnormal finding of lung field

== ENCOUNTER → 2022-04-25 | Outpatient (CLI) | payer MEDICARE, OTHER ==
[~2022-04-25] MED LIST changes: +LISI5TAB11 PO; +MIRA3350 PO
== END ==
LOC: M LABSMTC 11:51
PROVIDERS: ATTEND Anesthesiology
DX: Z11.52 Encounter for screening for COVID-19 (principal); Z20.822 Contact with and (suspected) exposure to COVID-19

== ENCOUNTER → 2022-05-03 | Outpatient (CLI) | payer MEDICARE, OTHER | LOC: M LABSMTC 10:20 | PROVIDERS: ATTEND Anesthesiology | DX: Z11.52 Encounter for screening for COVID-19 (principal); Z20.822 Contact with and (suspected) exposure to COVID-19 ==

== ENCOUNTER 2022-05-05 09:27 | Day surgery (SDC) | payer MEDICARE, OTHER ==
[~2022-05-05] VITALS: Ht 180.3 cm; Wt 87.9 kg
[~2022-05-05 09:27] MED LIST changes: +CelecoXIB 400 MG CAP PO ONE; +LIDOCAINE 2% INJ 100 MG/5 ML SYRINGE As Ordered ONE; +ONDANSETRON 4MG 2ML VIAL As Ordered ONE; +ROCURONIUM BROMIDE 50 MG/5 ML VIAL As Ordered ONE; +ceFAZolin SOD 2 GM in IV 1 EA IV ONE; +dexameTHASONE 4 MG/ML 1ML VIAL (J1100 PER 1MG) As Ordered ONE; +fentaNYL 250 MCG/5 ML INJECTION As Ordered ONE; +propofoL 200 MG/20 ML VIAL As Ordered ONE
[2022-05-05] MEDS ORDERED: LR 1,000 ML IV SCH ×2 (09:35→15:15)
[2022-05-05] MEDS ORDERED: BUPIVACAINE HCL 0.25% 10ML VIAL As Ordered ONE (12:08)
[2022-05-05] MEDS ORDERED: BUPIVACAINE LIPOSOME/PF 1.3% 20ML VIAL (13.3MG/ML)(EXPAREL) As Ordered ONE (12:09)
[2022-05-05] MEDS ORDERED: LIDOCAINE 1% SDV 30ML VIAL As Ordered ONE (12:09)
[2022-05-05] MEDS ORDERED: BUPIVACAINE HCL 0.25% 30ML VIAL As Ordered ONE (12:09)
[2022-05-05] MEDS ORDERED: ACETAMINOPHEN 1000MG 100ML IV BTL (OFIRMEV) (J0131 PER 10MG) As Ordered ONE (12:51)
[2022-05-05] MEDS ORDERED: PHENYLephrine 500MCG 5ML (100MCG/ML) SYRINGE As Ordered ONE (13:17)
[2022-05-05] MEDS ORDERED: SUGAMMADEX SODIUM 500 MG/5 ML VIAL (BRIDION) As Ordered ONE (13:27)
[2022-05-05] MEDS ORDERED: ROCURONIUM BROMIDE 50 MG/5 ML VIAL As Ordered ONE (13:30)
[2022-05-05] MEDS ORDERED: ESMOLOL INJ 100MG/10ML VIAL As Ordered ONE (13:36)
[2022-05-05] MEDS ORDERED: fentaNYL 100 MCG/2 ML INJECTION IV PRN (15:15)
[2022-05-05] MEDS ORDERED: oxyCODONE 5MG TAB PO PRN (15:15)
[2022-05-05] MEDS ORDERED: ONDANSETRON 4MG 2ML VIAL IV PRN (15:15)
[2022-05-05] MEDS ORDERED: LR 250 ML IV STA (15:56)
[2022-05-05] MEDS: METOPROLOL 5 MG/5 ML VIAL IV PRN ×4 (16:11→16:51)
[2022-05-05 18:30] VITALS: BP 149/88
== END 2022-05-05 18:55 | disposition home or self-care (01) ==
LOC: M SDC 09:27
PROVIDERS: ATTEND Surgery
DX: K42.9 Umbilical hernia without obstruction or gangrene (principal); E11.9 Type 2 diabetes mellitus without complications; I10 Essential (primary) hypertension; E78.00 Pure hypercholesterolemia, unspecified; I48.91 Unspecified atrial fibrillation; Z87.891 Personal history of nicotine dependence; Z88.5 Allergy status to narcotic agent; Z79.899 Other long term (current) drug therapy
CPT/HCPCS: 49652; C1781; C9290; J0131; J0690; J1100; J2370; J2405; J3010; S2900